=== PATIENT | female | born 1950 | race Caucasian/White ===

== ENCOUNTER 2017-09-07 08:15 | Emergency (ER) | payer MEDICARE, BC ==
[2017-09-07 08:25] VITALS: BP 185/61
[2017-09-07] MEDS ORDERED: Orphenadrine 100 MG Tab.ER PO STA (09:04)
[2017-09-07] MEDS ORDERED: predniSONE 20 MG Tab PO ONE (09:04)
--- NOTE | 2017-09-07 09:10 | EDM.PDOC ---
ED HPI GENERAL MEDICAL PROBLEM - General Chief Complaint: Lower Extremity Injury/Pain Stated Complaint: RT HIP PAIN Time Seen by Provider: 09/07/17 08:25 Source of Information: Reports: Patient, Family (Daughter), Old Records, RN Notes Reviewed History Limitations: Reports: No Limitations - History of Present Illness INITIAL COMMENTS - FREE TEXT/NARRATIVE: The patient states that she has had pain in her right buttock for the past 8 days. She also reports numbness to her right lower extremity all the way down to her toes, for perhaps a week. The pain is not modifiable. She is not have any bowel or bladder incontinence. She has been taking ibuprofen, Tylenol, and aspirin, without relief. She states that she had similar symptoms in 2004, and received a local injection here in the ED which lasted up until 8 days ago. Review of prior medical records from 07/29/2015 finds that the patient was given Dilaudid 0.5 mg IM, Toradol 60 mg IM, and Flexeril 10 mg po. A subsequent MRI of the lumbar spine on 07/31/2015 found diffuse degenerative changes, most prominently a bulging disc compromising the exiting L4 nerve root within the neural foramina at L4-L5. The patient's PCP is Dr. Robledo, who has not been notified of this current issue. Right Hip Pain Score (Numeric/FACES): 10 - Related Data Allergies Allergy/AdvReac Type Severity Reaction Status Date / Time codeine Allergy Difficulty Verified 09/07/17 08:24 Breathing lidocaine AdvReac Dizziness Verified 09/07/17 08:24 Home Meds: Home Meds Aspirin 81 mg PO DAILY 09/07/17 [History] Atenolol 25 mg PO DAILY 09/07/17 [History] Hydrochlorothiazide 12.5 mg PO DAILY 09/07/17 [History] Orphenadrine [Norflex] 1 tab PO Q12H #20 tab.er 09/07/17 [Rx] Potassium Chloride [Klor-Con 10] 10 meq PO DAILY 09/07/17 [History] Pravastatin [Pravachol] 40 mg PO DAILY 09/07/17 [History] Prednisone [IJD: predniSONE] 20 mg PO WITHBREAKFAST #5 tab 09/07/17 [Rx] metFORMIN [Glucophage XR] 250 mg PO BID 09/07/17 [History] Past Medical History Cardiovascular History: Reports: High Cholesterol, Hypertension Musculoskeletal History: Reports: Arthritis, Other (See Below) (Pseudogout) Endocrine/Metabolic History: Reports: Diabetes, Type II - Past Surgical History HEENT Surgical History: Reports: Cataract Surgery (right) GI Surgical History: Reports: Appendectomy Female Surgical History: Reports: Tubal Ligation Musculoskeletal Surgical History: Reports: Shoulder Surgery (right, open x 1, arthroscopic x 2) Social & Family History - Tobacco Use Smoking Status *Q: Former Smoker Years of Tobacco use: 27 Packs/Tins Daily: 1 Month Tobacco Last Used: Quit 1991 - Caffeine Use Caffeine Use: Reports: Soda - Alcohol Use Alcohol Use History: Yes Alcohol Use Frequency: Rarely - Recreational Drug Use Recreational Drug Use: No - Living Situation & Occupation Living situation: Reports: , with Spouse Occupation: Retired ED ROS GENERAL - Review of Systems Review Of Systems: See Below Constitutional: Reports: No Symptoms HEENT: Reports: No Symptoms Respiratory: Reports: No Symptoms Cardiovascular: Reports: No Symptoms Endocrine: Reports: No Symptoms GI/Abdominal: Reports: No Symptoms : Reports: No Symptoms Musculoskeletal: Reports: No Symptoms Skin: Reports: No Symptoms Neurological: Reports: No Symptoms Psychiatric: Reports: No Symptoms Hematologic/Lymphatic: Reports: No Symptoms Immunologic: Reports: No Symptoms ED EXAM,LOWER BACK PAIN/INJURY - Physical Exam Exam: See Below Exam Limited By: No Limitations General Appearance: Alert, WD/WN, Mild Distress (Appears comfortable at rest, but uncomfortable to move about) Ears: Normal External Exam, Hearing Grossly Normal Nose: Normal Inspection, No Blood Throat/Mouth: Normal Inspection, Normal Lips, Normal Voice, No Airway Compromise Head: Atraumatic, Normocephalic Neck: Normal Inspection, Full Range of Motion Respiratory/Chest: No Respiratory Distress, Lungs Clear, Normal Breath Sounds, No Accessory Muscle Use Cardiovascular: Normal Peripheral Pulses, Regular Rate, Rhythm, No Gallop, No JVD, No Murmur, No Rub GI/Abdominal: Normal Bowel Sounds, Soft, Non-Tender, No Organomegaly, No Distention, No Abnormal Bruit, No Mass (Female) Exam: Deferred Rectal (Female) Exam: Deferred Back Exam: Normal Inspection, Other (No tenderness to palpation of the vertebral spinous processes, however, there is tenderness over the right SI joint. No tenderness to palpation of the right buttock or right lower extremity. Straight leg raise induces a straining sensation at approximately 75 on the right, and none on the left through 90. The patient is able to flex the spine to approximately 90, and extend to approximately 30. She is able to tilt to both the left and right to approximately 30. She is able to twist the spine to approximately 30 bilaterally. Bilateral unilateral knee bend appears to be normal, although induces pain to the right SI joint area.) Extremities: Normal Inspection, Normal Range of Motion, No Pedal Edema, Normal Capillary Refill Neurological: Alert, Normal Dorsiflexion, Normal Plantar Flexion, No Motor/ Sensory Deficits, Oriented x 3 Psychiatric: Normal Affect Skin Exam: Warm, Dry, Intact, Normal Color, No Rash Course - Vital Signs Last Recorded V/S: Last Vital Signs Temp 36.6 C 09/07/17 08:22 Pulse 66 09/07/17 08:22 Resp 16 09/07/17 08:22 BP 185/61 H 09/07/17 08:22 Pulse Ox 100 09/07/17 08:22 - Orders/Labs/Meds Meds: Medications Discontinued Medications Generic Name Dose Route Start Last Admin Trade Name Barrieq PRN Reason Stop Dose Admin Orphenadrine Citrate 100 mg 09/07/17 09:04 09/07/17 09:16 Norflex PO 09/07/17 09:05 100 mg ONETIME STA Administration Prednisone 60 mg 09/07/17 09:04 09/07/17 09:16 Prednisone PO 09/07/17 09:05 60 mg ONETIME ONE Administration - Re-Assessments/Exams Free Text/Narrative Re-Assessment/Exam: 09/07/17 09:05 On examination, the patient appears to have right sacroiliitis, which is likely irritating the sciatic nerve, causing right lower extremity tingling and numbness. Her examination is NOT consistent with a herniated intervertebral disc. I'm recommending oral prednisone and Norflex. Because the patient is a diabetic, I informed her that her blood sugars will likely go up. I'm recommending that she check her blood sugars twice a day, and contact Dr. Robledo's office, especially if her blood sugars go into the 300s, as she may require additional diabetic medication at that point, if only temporarily. The patient was also informed that her pain may return after the prednisone course has finished. Departure - Departure Time of Disposition: 09:07 Disposition: Home, Self-Care 01 Condition: Good Clinical Impression: Sacroiliitis - Discharge Information Prescriptions: Orphenadrine [Norflex] 1 tab PO Q12H #20 tab.er Prednisone [IJD: predniSONE] 20 mg PO WITHBREAKFAST #5 tab Instructions: Hip Pain Referrals: John Robledo MD [Primary Care Provider] - Forms: ED Department Discharge Additional Instructions: You were seen in the emergency room for lower right back pain with tingling and numbness of your right lower extremity. Your examination is consistent with right sacroiliitis. Your examination is NOT consistent with a herniated intervertebral disc. You have been started on the steroid prednisone. Take one tablet every morning, with breakfast, starting tomorrow, 09/08/2017. Swallow this pill quickly - it tastes bad! You have been started on the muscle relaxant Norflex. Take one tablet every 12 hours, starting , 09/07/2017. Prednisone will likely cause your blood sugar to go up. We recommend that you check your blood sugar twice a day, and keep a log. Please notify the office of Dr. Robledo of this ER visit, your being on prednisone, and of your blood sugars. You may require additional diabetes medication temporarily. While you are on prednisone, you CANNOT also take an NSAID, such as aspirin, ibuprofen, or Aleve. Doing so can significantly increase the risk of your developing a stomach ulcer. Be aware that your symptoms may return after your course of prednisone. If this is the case, we recommend that you follow-up with Dr. Robledo or a back specialist for further evaluation and treatment. If any other problems, please do not hesitate to return to the ER.
== END 2017-09-07 09:30 | disposition home or self-care (01) ==
LOC: JD.ED 08:15
DX: M46.1 Sacroiliitis, not elsewhere classified (principal); E78.00 Pure hypercholesterolemia, unspecified; I10 Essential (primary) hypertension; E11.9 Type 2 diabetes mellitus without complications; Z87.891 Personal history of nicotine dependence; Z88.8 Allergy status to other drugs, medicaments and biological substances; Z88.5 Allergy status to narcotic agent; Z79.82 Long term (current) use of aspirin; Z79.899 Other long term (current) drug therapy
CPT/HCPCS: 99284; A9270; 99283

== ENCOUNTER 2019-04-07 13:26 | Emergency (ER) | payer MEDICARE, OTHER ==
[2019-04-07 13:35] VITALS: BP 155/66
[2019-04-07] MEDS ORDERED: Sodium Chloride 0.9% 1,000 ML IV ONE (13:57)
[2019-04-07] MEDS ORDERED: Ondansetron 4 MG/2 ML SDV IVPUSH ONE (13:58)
--- NOTE | 2019-04-07 14:41 | EDM.PDOC ---
ED HPI GENERAL MEDICAL PROBLEM - General Chief Complaint: Gastrointestinal Problem Stated Complaint: [facility] Time Seen by Provider: 04/07/19 13:33 Source of Information: Reports: Patient, Family History Limitations: Reports: No Limitations - History of Present Illness INITIAL COMMENTS - FREE TEXT/NARRATIVE: 69 yo F brought in by [facility] comes in today for complaints of generalized weakness, dizziness and diarrhea this AM. She has never had this happen before. This morning she had an egg salad sandwich, she is unsure how old the eggs were, and within an hour had the urge to go diarrhea. She went to the bathroom and got lightheaded and fell into her 's arms d/t weakness. She did not fall or hit her head, no LOC. She normally walks on her own with no walker. She also c/o nausea, abdominal cramping in the lower quadrant. She denies F/C, cough, vomiting, constipation, or any GI/ symptoms. No other concerns at this time. She also just had surgery in [place] on Thursday to get her "left carotid cleaned out". She was recently on IV antibiotics during her hospital stay in [place]. PCP is Dr. Robledo - Related Data Allergies Allergy/AdvReac Type Severity Reaction Status Date / Time codeine Allergy Difficulty Verified 09/07/17 08:24 Breathing lidocaine AdvReac Dizziness Verified 09/07/17 08:24 Home Meds: Home Meds Aspirin 81 mg PO DAILY 09/07/17 [History] Atenolol 25 mg PO DAILY 09/07/17 [History] Pravastatin [Pravachol] 40 mg PO DAILY 09/07/17 [History] hydroCHLOROthiazide [Hydrochlorothiazide] 12.5 mg PO DAILY 09/07/17 [History] metFORMIN [Glucophage XR] 250 mg PO BID 09/07/17 [History] Past Medical History - Past Health History Medical/Surgical History: Denies Medical/Surgical History Cardiovascular History: Reports: High Cholesterol, Hypertension [employer] History: Reports: Musculoskeletal History: Reports: Arthritis, Other (See Below) Endocrine/Metabolic History: Reports: Diabetes, Type II - Past Surgical History HEENT Surgical History: Reports: Cataract Surgery Cardiovascular Surgical History: Reports: Other (See Below) Other Cardiovascular Surgeries/Procedures: Pt had left carotid artery "cleaned out." GI Surgical History: Reports: Appendectomy Female Surgical History: Reports: Tubal Ligation Musculoskeletal Surgical History: Reports: Carpal Tunnel, Shoulder Surgery Social & Family History - Tobacco Use Smoking Status *Q: Never Smoker - Caffeine Use Caffeine Use: Reports: Soda - Recreational Drug Use Recreational Drug Use: No - Living Situation & Occupation Living situation: Reports: , with Spouse Occupation: Retired ED ROS GENERAL - Review of Systems Review Of Systems: See Below (generalized) Constitutional: Reports: Weakness. Denies: Fever, Chills HEENT: Reports: Glasses. Denies: Hearing Loss, Vision Change Respiratory: Reports: No Symptoms. Denies: Shortness of Breath, Wheezing, Cough Cardiovascular: Reports: Lightheadedness. Denies: Chest Pain, Edema, Palpitations, Syncope Endocrine: Reports: No Symptoms GI/Abdominal: Reports: Abdominal Pain (lower quadrant), Diarrhea, Nausea. Denies: Black Stool, Bloody Stool, Hematemesis, Hematochezia, Melena, Vomiting : Reports: No Symptoms Musculoskeletal: Reports: No Symptoms Skin: Reports: No Symptoms Neurological: Reports: Difficulty Walking (d/t weakness), Weakness. Denies: Confusion, Headache, Numbness, Syncope, Tingling, Trouble Speaking Psychiatric: Reports: No Symptoms Hematologic/Lymphatic: Reports: No Symptoms Immunologic: Reports: No Symptoms ED EXAM, GI/ABD - Physical Exam Exam: See Below Exam Limited By: No Limitations General Appearance: Alert, WD/WN, No Apparent Distress Eyes: Bilateral: Normal Appearance, EOMI Ears: Normal External Exam, Hearing Grossly Normal Nose: Normal Inspection, Normal Mucosa, No Blood Throat/Mouth: Normal Inspection, Normal Lips, Normal Teeth, Normal Gums, Normal Oropharynx, Normal Voice, No Airway Compromise Head: Atraumatic, Normocephalic Neck: Normal Inspection, Supple, Non-Tender, Full Range of Motion Respiratory/Chest: No Respiratory Distress, Lungs Clear, Normal Breath Sounds, No Accessory Muscle Use, Chest Non-Tender Cardiovascular: Normal Peripheral Pulses, Regular Rate, Rhythm, No Edema, No Gallop, No JVD, No Murmur, No Rub GI/Abdominal Exam: Normal Bowel Sounds, Soft, Non-Tender, No Organomegaly, No Distention, No Abnormal Bruit, No Mass, Pelvis Stable. No: Guarding, Rigid, Rebound, Tender Back Exam: Normal Inspection Extremities: Normal Inspection, Normal Range of Motion, Non-Tender, Normal Capillary Refill, No Pedal Edema Neurological: Alert, Oriented, CN II-XII Intact, Normal Cognition, Normal Gait, Normal Reflexes, No Motor/Sensory Deficits Psychiatric: Normal Affect, Normal Mood Skin Exam: Warm, Dry, Intact, Normal Color, No Rash Course - Vital Signs Last Recorded V/S: Last Vital Signs Temp 97.1 F 04/07/19 13:31 Pulse 66 04/07/19 13:31 Resp 16 04/07/19 13:31 BP 155/66 H 04/07/19 13:31 Pulse Ox 99 04/07/19 13:31 Orthostatic Blood Pressure [ 163/63 Standing] Orthostatic Blood Pressure [ 163/57 Supine] - Orders/Labs/Meds Orders: Active Orders 24 hr Category Date Time Status EKG Documentation Completion [RC] ASDIRECTED Care 04/07/19 13:58 Active Orthostatic Vital Signs [RC] ASDIRECTED Care 04/07/19 13:59 Active C DIFFICILE BY PCR W/NAP1 [MOLEC] Stat Lab 04/07/19 17:24 Ordered Isolation [COMM] Stat Oth 04/07/19 17:24 Ordered EKG 12 Lead [EK] Stat Ther 04/07/19 13:58 Ordered Labs: Laboratory Tests 04/07/19 04/07/19 04/07/19 Range/Units 15:05 15:05 15:05 WBC 13.96 H (3.98-10.04) K/mm3 RBC 4.93 (3.98-5.22) M/mm3 Hgb 13.0 (11.2-15.7) gm/L Hct 38.4 (34.1-44.9) % MCV 77.9 L (79.4-94.8) fl MCH 26.4 (25.6-32.2) pg MCHC 33.9 (32.2-35.5) g/dl RDW Std Deviation 38.5 (36.4-46.3) fL Plt Count 366 (182-369) K/mm3 MPV 9.0 L (9.4-12.3) fl Neut % (Auto) 83.0 H (34.0-71.1) % Lymph % (Auto) 8.2 L (19.3-51.7) % Bremer % (Auto) 8.2 (4.7-12.5) % Eos % (Auto) 0.1 L (0.7-5.8) Baso % (Auto) 0.2 (0.1-1.2) % Neut # (Auto) 11.59 H (1.56-6.13) K/mm3 Lymph # (Auto) 1.14 L (1.18-3.74) K/mm3 Bremer # (Auto) 1.14 H (0.24-0.36) K/mm3 Eos # (Auto) 0.02 L (0.04-0.36) K/mm3 Baso # (Auto) 0.03 (0.01-0.08) K/mm3 Manual Slide Review Abnormal smear Sodium 136 (136-145) mEq/L Potassium 3.0 L (3.5-5.1) mEq/L Chloride 96 L (98-107) mEq/L Carbon Dioxide 30 (21-32) mEq/L Anion Gap 13.0 (5-15) BUN 12 (7-18) mg/dL Creatinine 0.8 (0.55-1.02) mg/dL Est Cr Clr Drug Dosing 48.67 mL/min Estimated GFR (MDRD) > 60 (>60) mL/min BUN/Creatinine Ratio 15.0 (14-18) Glucose 200 H (83-115) mg/dL Calcium 9.8 (8.5-10.1) mg/dL Magnesium 2.1 (1.8-2.4) mg/dl Total Bilirubin 0.3 (0.2-1.0) mg/dL AST 23 (15-37) U/L ALT 27 (14-59) U/L Alkaline Phosphatase 120 H (46-116) U/L Total Protein 7.6 (6.4-8.2) g/dl Albumin 3.3 L (3.4-5.0) g/dl Globulin 4.3 gm/dL Albumin/Globulin Ratio 0.8 L (1-2) Urine Color (Yellow) Urine Appearance (Clear) Urine pH (5.0-8.0) Ur Specific [place] (1.005-1.030) Urine Protein (Negative) Urine Glucose (UA) (Negative) Urine Ketones (Negative) Urine Occult Blood (Negative) Urine Nitrite (Negative) Urine Bilirubin (Negative) Urine Urobilinogen (0.2-1.0) Ur Leukocyte Esterase (Negative) Urine RBC (0-5) /hpf Urine WBC (0-5) /hpf Ur Squamous Epith Cells (0-5) /hpf Urine Bacteria (FEW) /hpf Urine Mucus (FEW) /hpf 04/07/19 Range/Units 16:35 WBC (3.98-10.04) K/mm3 RBC (3.98-5.22) M/mm3 Hgb (11.2-15.7) gm/L Hct (34.1-44.9) % MCV (79.4-94.8) fl MCH (25.6-32.2) pg MCHC (32.2-35.5) g/dl RDW Std Deviation (36.4-46.3) fL Plt Count (182-369) K/mm3 MPV (9.4-12.3) fl Neut % (Auto) (34.0-71.1) % Lymph % (Auto) (19.3-51.7) % Bremer % (Auto) (4.7-12.5) % Eos % (Auto) (0.7-5.8) Baso % (Auto) (0.1-1.2) % Neut # (Auto) (1.56-6.13) K/mm3 Lymph # (Auto) (1.18-3.74) K/mm3 Bremer # (Auto) (0.24-0.36) K/mm3 Eos # (Auto) (0.04-0.36) K/mm3 Baso # (Auto) (0.01-0.08) K/mm3 Manual Slide Review Sodium (136-145) mEq/L Potassium (3.5-5.1) mEq/L Chloride (98-107) mEq/L Carbon Dioxide (21-32) mEq/L Anion Gap (5-15) BUN (7-18) mg/dL Creatinine (0.55-1.02) mg/dL Est Cr Clr Drug Dosing mL/min Estimated GFR (MDRD) (>60) mL/min BUN/Creatinine Ratio (14-18) Glucose (83-115) mg/dL Calcium (8.5-10.1) mg/dL Magnesium (1.8-2.4) mg/dl Total Bilirubin (0.2-1.0) mg/dL AST (15-37) U/L ALT (14-59) U/L Alkaline Phosphatase (46-116) U/L Total Protein (6.4-8.2) g/dl Albumin (3.4-5.0) g/dl Globulin gm/dL Albumin/Globulin Ratio (1-2) Urine Color Light yellow (Yellow) Urine Appearance Clear (Clear) Urine pH 6.5 (5.0-8.0) Ur Specific [place] 1.010 (1.005-1.030) Urine Protein Negative (Negative) Urine Glucose (UA) Negative (Negative) Urine Ketones Negative (Negative) Urine Occult Blood Negative (Negative) Urine Nitrite Negative (Negative) Urine Bilirubin Negative (Negative) Urine Urobilinogen 0.2 (0.2-1.0) Ur Leukocyte Esterase Negative (Negative) Urine RBC 0-5 (0-5) /hpf Urine WBC Not seen (0-5) /hpf Ur Squamous Epith Cells 0-5 (0-5) /hpf Urine Bacteria Not seen (FEW) /hpf Urine Mucus Not seen (FEW) /hpf Meds: Medications Discontinued Medications Generic Name Dose Route Start Last Admin Trade Name Freq PRN Reason Stop Dose Admin Sodium Chloride 1,000 mls @ 999 mls/hr 04/07/19 13:57 04/07/19 15:08 Normal Saline IV 04/07/19 14:57 999 mls/hr ONETIME ONE Administration Ondansetron HCl 4 mg 04/07/19 13:58 04/07/19 15:08 Zofran IVPUSH 04/07/19 13:59 4 mg ONETIME ONE Administration Potassium Chloride 40 meq 04/07/19 15:56 04/07/19 16:11 Klor-Con M20 PO 04/07/19 15:57 40 meq ONETIME ONE Administration - Re-Assessments/Exams Free Text/Narrative Re-Assessment/Exam: 04/07/19 13:57 Ordered CBC, CMP, Mag, UA, WBC stool EKG Orthostatic VS 1L Bolus IV NS, Zofran IV push 04/07/19 14:[address] Rodriguez and myself- nothing acute seen. 04/07/19 14:48 No WBC seen in stool 04/07/19 15:58 CBC shows WBC 13.96, Neut 83% CMP shows K 3, Cl 96, Glu 200, Alk Phos 120, Albumin 3.3 Mag 2.1 WBC stool negative Orthostatic VS negative UA pending Will replace potassium 04/07/19 17:08 UA is not impressive for UTI Cdiff ordered and will call her if positive. She is ready to go home and is feeling much better after IV fluids, potassium, and Zofran. Departure - Departure Time of Disposition: 17:08 Disposition: Home, Self-Care 01 Condition: Fair Clinical Impression: Diarrhea, Generalized weakness - Discharge Information *PRESCRIPTION DRUG MONITORING PROGRAM REVIEWED*: Not Applicable *COPY OF PRESCRIPTION DRUG MONITORING REPORT IN PATIENT CECILIO: Not Applicable Instructions: Preventing Foodborne Illness, Weakness, [id number], Diarrhea, Adult, [id number], Food Poisoning, [id number] Referrals: John Robledo MD [Primary Care Provider] - Forms: ED Department Discharge Additional Instructions: You were seen in the ED today for new onset weakness, dizziness, and diarrhea. You had labs, urinalysis, stool study, EKG done here and were negative for a cardiac issue or infection. You were given IV fluids and potassium with some relief. It is likely you are suffering a food-borne illness from the egg salad sandwich you had this morning. Recommend symptomatic treatment- plenty of fluids , rest, BRAT diet (banana, rice, applesauce, toast). This should improve within 24 hours. Recommend follow up with your primary care provider. Please return to ED if new or worsening symptoms. - My Orders Last 24 Hours: My Active Orders 04/07/19 13:58 EKG Documentation Completion [RC] ASDIRECTED EKG 12 Lead [EK] Stat 04/07/19 13:59 Orthostatic Vital Signs [RC] ASDIRECTED 04/07/19 17:24 C DIFFICILE BY PCR W/NAP1 [MOLEC] Stat Isolation [COMM] Stat - Assessment/Plan Last 24 Hours: My Active Orders 04/07/19 13:58 EKG Documentation Completion [RC] ASDIRECTED EKG 12 Lead [EK] Stat 04/07/19 13:59 Orthostatic Vital Signs [RC] ASDIRECTED 04/07/19 17:24 C DIFFICILE BY PCR W/NAP1 [MOLEC] Stat Isolation [COMM] Stat
[2019-04-07] MEDS ORDERED: Potassium Chloride 20 MEQ Tab.ER PO ONE (15:56)
== END 2019-04-07 17:40 | disposition home or self-care (01) ==
LOC: JD.ED 13:26
DX: R53.1 Weakness (principal); R19.7 Diarrhea, unspecified; E78.00 Pure hypercholesterolemia, unspecified; I10 Essential (primary) hypertension; Z88.5 Allergy status to narcotic agent; Z79.899 Other long term (current) drug therapy
CPT/HCPCS: 36415; 80053; 81001; 83735; 85025; 87493; 89055; 93005; 96361; 96374; 99284; A9270; J2405; J7040; 93010; 99283

== ENCOUNTER 2020-08-15 07:00 | Day surgery (SDC) | payer MEDICARE, OTHER ==
[~2020-08-15 07:00] MED LIST: Lactated Ringers 1,000 ML IV SCH; Sodium Chloride 0.9% 10 ML Syringe FLUSH PRN
[2020-08-15] MEDS ORDERED: Lidocaine 1% 2 ML SDV ONE (07:47)
[2020-08-15] MEDS ORDERED: Propofol 200 MG/20 ML SDV ONE ×2 (07:47→08:59)
--- NOTE | 2020-08-15 08:34 | PCM.PREANE ---
Preanesthetic Assessment - Procedure Proposed Procedure: Colonoscopy - Anesthesia/Transfusion/Family Hx Anesthesia History: Prior Anesthesia Without Reaction Family History of Anesthesia Reaction: No - Review of Systems General: No Symptoms Pulmonary: No Symptoms Cardiovascular: No Symptoms Gastrointestinal: No Symptoms Neurological: No Symptoms Other: Reports: None - Physical Assessment NPO Status Date: 08/15/20 (greater than 8 hours) Vital Signs: Last Vital Signs Temp 36.9 C 08/15/20 07:10 Pulse 85 08/15/20 07:10 Resp 16 08/15/20 07:10 BP 169/55 H 08/15/20 07:10 Pulse Ox 98 08/15/20 07:10 Height: 5 ft 1 in Weight: 60.781 kg ASA Class: 2 Mental Status: Alert & Oriented x3 Airway Class: Mallampati = 2 Dentition: Reports: Normal Dentition Thyro-Mental Finger Breadths: 3 Mouth Opening Finger Breadths: 3 ROM/Head Extension: Full Lungs: Clear to Auscultation, Normal Respiratory Effort Cardiovascular: Regular Rate, Regular Rhythm - Lab Values: Laboratory Last Values SARS-CoV-2 RNA (ROMMEL) Negative (NEGATIVE) 08/15/20 06:58 - Allergies Allergies/Adverse Reactions: Allergies Allergy/AdvReac Type Severity Reaction Status Date / Time codeine Allergy Difficulty Verified 08/15/20 08:13 Breathing tree nut [Pecans] Allergy Anaphylactic Verified 08/15/20 08:13 Shock lidocaine AdvReac Dizziness Verified 08/15/20 08:13 - Acknowledgements Anesthesia Type Planned: MAC Pt an Appropriate Candidate for the Planned Anesthesia: Yes Alternatives and Risks of Anesthesia Discussed w Pt/Guardian: Yes Pt/Guardian Understands and Agrees with Anesthesia Plan: Yes PreAnesthesia Questionnaire - Past Health History Medical/Surgical History: Denies Medical/Surgical History HEENT History: Reports: Cataract, Impaired Vision Cardiovascular History: Reports: High Cholesterol, Hypertension, Other (See Below) Other Cardiovascular History: carotid artery stenosis Respiratory History: Reports: None Gastrointestinal History: Reports: Other (See Below) Other Gastrointestinal History: occassional constipation, abdominal bruit Genitourinary History: Reports: None CERTIFIED MEDICAL ASST History: Reports: Musculoskeletal History: Reports: Arthritis, Other (See Below) Neurological History: Reports: None Psychiatric History: Reports: None Endocrine/Metabolic History: Reports: Diabetes, Type II Hematologic History: Reports: None Immunologic History: Reports: None Oncologic (Cancer) History: Reports: None Dermatologic History: Reports: None - Past Surgical History Head Surgeries/Procedures: Reports: None HEENT Surgical History: Reports: Cataract Surgery Cardiovascular Surgical History: Reports: Carotid Endarterectomy, Other (See Below) Other Cardiovascular Surgeries/Procedures: Pt had left carotid artery "cleaned out." Respiratory Surgical History: Reports: None GI Surgical History: Reports: Appendectomy Female Surgical History: Reports: Tubal Ligation Male Surgical History: Reports: None Endocrine Surgical History: Reports: None Neurological Surgical History: Reports: None Musculoskeletal Surgical History: Reports: Carpal Tunnel, Shoulder Surgery Oncologic Surgical History: Reports: None Dermatological Surgical History: Reports: None - SUBSTANCE USE Smoking Status *Q: Former Smoker Recreational Drug Use History: No - HOME MEDS Home Medications: Home Meds Aspirin 81 mg PO DAILY 09/07/17 [History] hydroCHLOROthiazide [Hydrochlorothiazide] 12.5 mg PO DAILY 09/07/17 [History] metFORMIN [Glucophage XR] 250 mg PO BID 09/07/17 [History] Losartan [Cozaar] 25 mg PO DAILY 08/14/20 [History] Potassium Chloride 20 meq PO DAILY 08/14/20 [History] Rosuvastatin Calcium [Crestor] 40 mg PO DAILY 08/14/20 [History] amLODIPine [Norvasc] 5 mg PO DAILY 08/14/20 [History] - CURRENT (IN HOUSE) MEDS Current Meds: Current Medications Lactated Ringer's (Ringers, Lactated) 1,000 mls @ 125 mls/hr IV ASDIRECTED JUSTIN Stop: 08/15/20 23:00 Last Admin: 08/15/20 07:40 Dose: 125 mls/hr Documented by: Sodium Chloride (Saline Flush) 10 ml FLUSH ASDIRECTED PRN PRN Reason: Keep Vein Open Stop: 08/15/20 18:00 Discontinued Medications Lidocaine HCl (Lidocaine 1%) Confirm Administered Dose 4 ml .ROUTE .STK-MED ONE Stop: 08/15/20 07:48 Propofol (Diprivan 20 Ml) Confirm Administered Dose 400 mg .ROUTE .STK-MED ONE Stop: 08/15/20 07:48
[2020-08-15] MEDS ORDERED: ePHEDrine Sulfate/0.9% NaCl/Pf 25 MG/5 ML SYRINGE IV ONE (08:44)
--- NOTE | 2020-08-15 09:09 | PCM.OPNOTE ---
- General Post-Op/Procedure Note Date of Surgery/Procedure: 08/15/20 Operative Procedure(s): colonoscopy Findings: 1. Diverticulosis 2. Melanosis coli 3. Abnormal mucosa in sigmoid colon 4. Ascending colon polyps x2 Pre Op Diagnosis: positive cologuard Post-Op Diagnosis: same Anesthesia Technique: MAC Primary Surgeon: Crissy Reynolds Anesthesia Provider: Juan Lacy Pathology: 1. Ascending colon polyp x2 2. Sigmoid colon biopsy Fluid Replacement, Intraop: 1,000 Output, Urine Amount: 0 EBL in mLs: 0 Complications: none apparent Condition: Good
--- NOTE | 2020-08-15 09:10 | PCM.PRNOTE ---
- Free Text/Narrative Note: Operative Report Date of Surgery/Procedure: August 15, 2020 Operative Procedure: Colonoscopy to cecum with biopsy Pre Op Diagnosis: positive Cologuard Post-Op Diagnosis: same Surgeon: Dr. Crissy Reynolds Anesthesia Technique: MAC Anesthesia Provider: Juan Lacy CRNA IV Fluid Replacement, Intraop: 1000cc Output, Urine Amount: 0cc EBL : 0cc Findings: 1. Diverticulosis 2. Melanosis coli 3. Abnormal mucosa in sigmoid colon 4. Ascending colon polyps x2 Specimens: 1. Ascending colon polyps x2 2. Sigmoid colon biopsy Indication: The patient is a 70 year-old lady who presented to the outpatient clinic requesting colonoscopy. The patient has a history of a positive cologuard. Discussed the procedure of a colonoscopy including the polypectomy and biopsy. Risks of bleeding and perforation were discussed, the patient understood and wished to proceed. Written and consent was obtained. Description of the procedure: The patient was brought to the endoscopy suite and placed in the left lateral decubitus position. Appropriate monitors were applied. The patient was given MAC anesthesia. An anorectal examination was performed, revealing mild external skin tags. The scope was placed into the rectum and advanced to cecum with moderate difficulty requiring external abdominal pressure and change in patient position to supine. The patients cecum was entered, and the ileocecal valve and appendiceal orifice were identified and normal. At this point, the scope was withdrawn, paying careful attention to the mucosa. The patient had good bowel prep, allowing for visualization of 90% of the mucosa. A 3mm polyp was noted in the ascending colon, and was removed with a jumbo cold biopsy forceps. An area of polypoid mucosa measuring 1.2cm was noted in the ascending colon. This was biopsied using a jumbo cold biopsy forceps. It was then marked with an ink tattoo in the submucosal tissue as it was difficult to identify the edges of the abnormal appearing tissue. In the sigmoid colon there was abnormal appearing mucosa. This was biopsied using a jumbo cold biopsy forceps. The patient also had small and large mouth diverticula in the descending and sigmoid colon. The patient also had mild to moderate melanosis coli in the sigmoid and descending colon. In the rectum, the scope was retroflexed and no abnormalities were noted, except for some hemorrhoidal tissue. The scope was placed back in the lumen and the excess air was aspirated. The patient tolerated the procedure well. Complications: none apparent Condition: Good, transported to PACU in stable condition Crissy Reynolds MD General Surgery
--- NOTE | 2020-08-15 09:13 | PCM.POSTAN ---
POST ANESTHESIA ASSESSMENT - MENTAL STATUS Mental Status: Alert, Oriented - VITAL SIGNS Vital Signs: Last Vital Signs Temp 36.9 C 08/15/20 07:10 Pulse 85 08/15/20 07:10 Resp 16 08/15/20 07:10 BP 169/55 H 08/15/20 07:10 Pulse Ox 98 08/15/20 07:10 - RESPIRATORY Respiratory Status: Respiratory Rate WNL, Airway Patent, O2 Saturation Stable - CARDIOVASCULAR CV Status: Pulse Rate WNL, Blood Pressure Stable - GASTROINTESTINAL GI Status: No Symptoms - POST OP HYDRATION Hydration Status: Adequate & Stable - OBSERVATIONS Free Text/Narrative:: Routine transfer to recovery with handoff to RN. VSS, SV, GURROLA, FAC, CTAB. No concerns at this time. Patient ready for discharge so long as there are no changes.
--- NOTE | 2020-08-15 09:19 | PCM48HPAN ---
Post Anesthesia Note - EVALUATION WITHIN 48HRS OF ANESTHETIC Vital Signs in Normal Range: Yes Patient Participated in Evaluation: Yes Respiratory Function Stable: Yes Airway Patent: Yes Cardiovascular Function Stable: Yes Hydration Status Stable: Yes Pain Control Satisfactory: Yes Nausea and Vomiting Control Satisfactory: Yes Mental Status Recovered: Yes Vital Signs: Last Vital Signs Temp 36.7 C 08/15/20 09:06 Pulse 92 08/15/20 09:06 Resp 15 08/15/20 09:06 BP 106/44 L 08/15/20 09:06 Pulse Ox 100 08/15/20 09:06 - COMMENTS/OBSERVATIONS Free Text/Narrative:: Patient meets criteria for discharge home. VSS, SV, GURROLA, FAC, CTAB. No concerns at this time.
[2020-08-15 09:37] VITALS: BP 125/72; PULSE 72
== END 2020-08-15 09:52 | disposition home or self-care (01) ==
LOC: JD.SDS 07:00
PROVIDERS: ATTEND Surgery
DX: D12.2 Benign neoplasm of ascending colon (principal); D21.4 Benign neoplasm of connective and other soft tissue of abdomen; K57.30 Diverticulosis of large intestine without perforation or abscess without bleeding; K63.89 Other specified diseases of intestine; K64.4 Residual hemorrhoidal skin tags; Z01.812 Encounter for preprocedural laboratory examination; Z20.828 Contact with and (suspected) exposure to other viral communicable diseases; E78.5 Hyperlipidemia, unspecified; I10 Essential (primary) hypertension; E11.9 Type 2 diabetes mellitus without complications; Z90.49 Acquired absence of other specified parts of digestive tract; Z98.890 Other specified postprocedural states; Z79.899 Other long term (current) drug therapy; Z88.5 Allergy status to narcotic agent; Z88.8 Allergy status to other drugs, medicaments and biological substances; Z87.891 Personal history of nicotine dependence; Z91.010 Allergy to peanuts; Z79.82 Long term (current) use of aspirin
CPT/HCPCS: 45380; 45381; 88305; J0171; J2001; J2704; J7120; U0002; 00811